=== PATIENT | female | born 1960 | race Caucasian/White ===

== ENCOUNTER 2016-12-03 08:28 | Emergency (ER) ==
[2016-12-03 08:35] VITALS: BP 120/77; TEMP 97.7; BMI 25.9
--- NOTE | 2016-12-03 09:13 | DI ---
EXAM: Radiographs, pelvis HISTORY: Pelvic pain. COMPARISON: 04/23/2016. TECHNIQUE: Single frontal view. FINDINGS: Bone mineralization is normal. There is no fracture or dislocation. The joint spaces ar e maintained. No focal soft tissue abnormality is seen. Since the prior study, there has been no s ignificant interval change. IMPRESSION: No fracture or dislocation.
--- NOTE | 2016-12-03 09:19 | DI ---
EXAM: Radiographs, right hip HISTORY: Right hip pain. COMPARISON: 04/23/2016. TECHNIQUE: Two views. FINDINGS: Plate and screw fixation seen in the mid femoral diaphysis across a partially healed medeiros sverse fracture which demonstrates some bridging callus formation. No acute fracture or dislocation identified. The soft tissues are unremarkable. IMPRESSION: 1. No acute abnormality of the right hip. 2. Partially healed mid diaphyseal fracture of the mid femoral diaphysis status post internal fixat ion.
--- NOTE | 2016-12-03 09:22 | DI ---
Exam: Two views right femur. Clinical indication: Pain. Findings: There is a large plate and screws fixating a transverse fracture within the distal one third of the right femur. There is some callus formation across the fracture site, but there is still persistent lucency. There is no radiographic evidence of hardware complication. There is a significant bowing within the right femur which is unchanged from bilateral knee radiogra phs dated 08/10/2015. There is a mild right knee degenerative osteoarthritic changes. Overall the right femur appears shortened at and may be related to underlying congenital abnormality. Impression: 1. Plate and screws fixating the distal right femur fracture with partial healing and no radiograph ic evidence of hardware complication. 2. Chronic bowing of the right femur. 3. Right knee degenerative osteoarthritic changes.
--- NOTE | 2016-12-03 09:33 | ED.PDOC ---
General ED Provider: Dr. ROBERTO LR Chief Complaint: Extremity Pain/Injury Stated Complaint: chronic right femur, hip pain Time Seen by Physician: 08:33 (this pain is chronic no new injury) Mode of Arrival: Walk-In Information Source: Patient Exam Limitations: No limitations Primary Care Provider: ANNIE OSBORN Nursing and Triage Documentation Reviewed and Agree: Yes (seen with lobo young) Review of Systems - Review Of Systems Constitutional: Reports: No symptoms Eyes: Reports: No symptoms Ears, Nose, Mouth, Throat: Reports: No symptoms Respiratory: Reports: No symptoms Cardiac: Reports: No symptoms GI: Reports: No symptoms : Reports: No symptoms Musculoskeletal: Reports: Joint pain (hip right, femur) Skin: Reports: No symptoms Neurological: Reports: No symptoms Endocrine: Reports: No symptoms Hematologic/Lymphatic: Reports: No symptoms All Other Systems: Reviewed and Negative Past Medical History - Past Medical History Endocrine: Reports: None Cardiovascular: Reports: None Respiratory: Reports: None Hematological: Reports: None Gastrointestinal: Reports: None Genitourinary: Reports: None Neuro/Psych: Reports: Migraine, Anxiety, Depression Musculoskeletal: Reports: None Cancer: Reports: Other (melanoma) Last Menstrual Period: hysterectomy Other Pertinent Past Medical History: 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 - Surgical History General Surgical History: Reports: Orthopedic (right knee with steel plate for 2 years ), Other (melanoma upper lip) - Family History Family History: Reports: Unknown - Social History Smoking Status: Current every day smoker, Light tobacco smoker Hx Substance Use: No Alcohol Screening: None Physical Exam - Physical Exam Appearance: Well-appearing, No pain distress, Well-nourished Eyes: OFELIA, EOMI, Conjunctiva clear ENT: Ears normal, Nose normal, Oropharynx normal Respiratory: Airway patent, Breath sounds clear, Breath sounds equal, Respirations nonlabored Cardiovascular: RRR, Pulses normal, No rub, No murmur GI/: Soft, Nontender, No masses, Bowel sounds normal, No Organomegaly Musculoskeletal: Normal strength, ROM intact, No edema, No calf tenderness Skin: Warm, Dry, Normal color Neurological: Sensation intact, Motor intact, Reflexes intact, Cranial nerves intact, Alert, Oriented Psychiatric: Affect appropriate, Mood appropriate Interpretation - Radiology Interpretation Radiology Interpretation By: Radiologist Radiology Results: No acute changes Critical Care Note - Critical Care Note Total Time (mins): 0 Course - Course Orders, Labs, Meds: Orders Category Date Time Status FEMUR, RIGHT 2 VIEWS Stat RADS 12/03/16 08:42 Completed HIP, RIGHT 2 VIEWS Stat RADS 12/03/16 08:42 Completed PELVIS 1 OR 2 VIEWS Stat RADS 12/03/16 08:42 Completed Vital Signs: Temp Pulse Resp BP Pulse Ox 12/03/16 08:29 97.7 F 66 20 120/77 96 Departure - Departure Time of Disposition: 09:32 Disposition: HOME SELF-CARE Discharge Problem: Chronic pain of right hip Instructions: Arthralgia (ED), Hip Pain (ED) Condition: Good Pt referred to PMD for follow-up: No Additional Instructions: Please call your Family Physician as soon as possible to schedule a follow-up appointment. Allergies/Adverse Reactions: Allergies dicyclomine HCl [From Bentyl] Adverse Reaction (Verified 12/03/16 08:37) venom-wasp [Wasp Venom] Adverse Reaction (Verified 12/03/16 08:37) Home Medications: Ambulatory Orders Diazepam 10 mg PO TID 08/28/14 Fluoxetine HCl [Prozac] 60 mg PO DAILY 08/28/14 Methocarbamol 500 mg PO TID 08/28/14 Quetiapine Fumarate [Seroquel] 300 mg PO BEDTIME 08/28/14 Hydrocodone Bit/Acetaminophen [[place] 7.5-325] 1 each PO QID 07/04/16 Disposition Discussed With: Patient
== END 2016-12-03 09:40 | disposition home or self-care (01) ==
LOC: ED 08:28
DX: M25.551 Pain in right hip (principal); G89.29 Other chronic pain; F17.210 Nicotine dependence, cigarettes, uncomplicated; Z79.899 Other long term (current) drug therapy
CPT/HCPCS: 99282

== ENCOUNTER 2017-11-26 10:50 | Outpatient (CLI) ==
--- NOTE | 2017-11-27 09:33 | MAMMO ---
EXAM: Digital screening mammogram with 3-D tomosynthesis and CAD HISTORY: Screening mammogram COMPARISON: Mammogram 03/01/2016 and 04/08/2014 FINDINGS: Bilateral CC and MLO views of the breasts were performed digitally and demonstrate heterog eneous breast density. This significantly limits this evaluation for subtle masses or calcifications. There is no abnormal nodule or calcification. There is no significant interval change. IMPRESSION: No suspicious nodule or calcification RECOMMENDATION: Annual screening mammogram BIRADS category 1: Normal
== END 2017-11-26 10:51 | disposition home or self-care (01) ==
LOC: RAD 10:50
PROVIDERS: ATTEND Physician Assistant Medical
DX: Z12.31 Encounter for screening mammogram for malignant neoplasm of breast (principal)
CPT/HCPCS: 77067

== ENCOUNTER 2018-06-14 11:40 | Emergency (ER) | payer OTHER ==
[2018-06-14 11:48] VITALS: BP 143/86; TEMP 98.6; BMI 22.4
--- NOTE | 2018-06-14 12:21 | ED.PDOC ---
General ED Provider: Dr. ANTONIO HERNANDEZ Chief Complaint: Wrist Pain/Injury Stated Complaint: Rt wrist and hand pain. Was walking dog who pulled forcefully on leash causing her to fall on rt hand and wrist/leash wrapped around wrist and 5th finger Time Seen by Physician: 12:15 Mode of Arrival: Walk-In Information Source: Patient Exam Limitations: No limitations Primary Care Provider: ANNIE OSBORN Nursing and Triage Documentation Reviewed and Agree: Yes Does patient meet sepsis criteria?: No System Inflammatory Response Syndrome: Not Applicable Sepsis Protocol: For patient's 13 years and over: Temp is 96.8 and below OR 101 and greater Pulse >90 BPM Resp >20/minute Acutely Altered Mental Status Are patient's symptoms suggestive of a new infection, such as: -Pneumonia -Skin, Soft Tissue -Endocarditis -UTI -Bone, Joint Infection -Implantable Device -Acute Abdominal Infection -Wound Infection -Meningitis -Blood Stream Catheter Infection -Unknown Musculoskeletal Complaint Exam - Hand/Wrist Complaint/Exam Location of Pain: Reports: Right Mechanism of Injury: Reports: Trauma Symptoms Are: Still present Onset of Pain: Reports: Immediate, Post accident Initial Severity: Moderate Current Severity: Mild Location: Reports: Discrete (over ulnar carpal region and 5th metacarpal; no ecchymoses) Character: Reports: Aching Alleviating: Reports: Rest, Cold Aggravating: Reports: Movement Associated Signs and Symptoms: Reports: Swelling. Denies: Redness, Bruising, Fever, Weakness, Numbness, Tingling Related History: Denies: Similar episode, Occupational injury Dominant Hand: Right Related Surgical History: Reports: None Hand/Wrist Findings: Present: Swelling Tenderness: Present: Ulna, Metacarpal Compartment Syndrome Risk Factors: Absent: Pain, Paralysis, Pallor, Pulselessness, Paresthesias Review of Systems - Review Of Systems Constitutional: Reports: No symptoms Eyes: Reports: No symptoms Ears, Nose, Mouth, Throat: Reports: No symptoms Respiratory: Reports: No symptoms Cardiac: Reports: No symptoms GI: Reports: No symptoms : Reports: No symptoms Musculoskeletal: Reports: No symptoms, Joint pain, Muscle pain Skin: Reports: No symptoms Neurological: Reports: No symptoms Endocrine: Reports: No symptoms Hematologic/Lymphatic: Reports: No symptoms All Other Systems: Reviewed and Negative Past Medical History - Past Medical History Endocrine: Reports: None Cardiovascular: Reports: None Respiratory: Reports: None Hematological: Reports: None Gastrointestinal: Reports: None Genitourinary: Reports: None Neuro/Psych: Reports: Migraine, Anxiety, Depression Musculoskeletal: Reports: None Cancer: Reports: Other (melanoma) Last Menstrual Period: NA Other Pertinent Past Medical History: 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 - Surgical History General Surgical History: Reports: Orthopedic (right knee with steel plate for 2 years ), Other (melanoma upper lip) - Family History Family History: Reports: Unknown - Social History Smoking Status: Current some day smoker Hx Substance Use: No Alcohol Screening: None - Immunizations Tetanus Shot up to Date: Yes Physical Exam - Physical Exam Appearance: Well-appearing, No pain distress, Well-nourished Eyes: OFELIA, EOMI, Conjunctiva clear ENT: Ears normal, Nose normal, Oropharynx normal Respiratory: Airway patent, Breath sounds clear, Breath sounds equal, Respirations nonlabored Cardiovascular: RRR, Pulses normal, No rub, No murmur GI/: Soft, Nontender, No masses, Bowel sounds normal, No Organomegaly Musculoskeletal: Normal strength, ROM intact, No edema, No calf tenderness Skin: Warm, Dry, Normal color Neurological: Sensation intact, Motor intact, Reflexes intact, Cranial nerves intact, Alert, Oriented Psychiatric: Affect appropriate, Mood appropriate Interpretation - Radiology Interpretation Radiology Interpretation By: Radiologist (Wrist and hand xrays) Radiology Results: Negative (Wrist and hand xrays at 1254 hrs) Re-Evaluation - Re-Evaluation Time of Re-Evaluation: 12:55 Status: Improved Vital Signs Stable: Yes Appearance: NAD Critical Care Note - Critical Care Note Total Time (mins): 0 Course - Course Orders, Labs, Meds: Orders Category Date Time Status HAND, RIGHT 3 VIEWS Stat RADS 06/14/18 12:19 Completed WRIST, RIGHT 3 VIEWS Stat RADS 06/14/18 12:19 Completed Vital Signs: Temp Pulse Resp BP Pulse Ox 06/14/18 11:40 98.6 F 64 16 143/86 H 96 Departure - Departure Time of Disposition: 12:58 Disposition: HOME SELF-CARE Discharge Problem: Contusion of hand, right, Strain of wrist, right Instructions: Knee Pain (ED), Wrist Sprain (ED), Hematoma (ED) Condition: Good Pt referred to PMD for follow-up: Yes (next week) IPMP verified?: No Additional Instructions: Wear splint for support Apply ice/ keep elevated and take Ibuprofen 200 mg every 6 hours as needed for pain Take home meds as well. Allergies/Adverse Reactions: Allergies dicyclomine HCl [From Bentyl] Adverse Reaction (Verified 06/14/18 11:50) venom-wasp [Wasp Venom] Adverse Reaction (Verified 06/14/18 11:50) Home Medications: Ambulatory Orders Diazepam 10 mg PO TID 08/28/14 Fluoxetine HCl [Prozac] 60 mg PO DAILY 08/28/14 Methocarbamol 500 mg PO TID 08/28/14 Quetiapine Fumarate [Seroquel] 300 mg PO BEDTIME 08/28/14 Hydrocodone Bit/Acetaminophen [[place] 7.5-325] 1 each PO QID 07/04/16 Disposition Discussed With: Patient
--- NOTE | 2018-06-14 12:45 | DI ---
EXAM: Three views of the right hand. History: Right hand pain and trauma. Findings: Osteopenia. No acute fracture. Severe narrowing of the second MCP joint with subluxation . Moderate narrowing of the second DIP joint. Mild to moderate polyarticular joint space narrowing s een elsewhere. Impression: No acute fracture
--- NOTE | 2018-06-14 12:47 | DI ---
EXAM: Three views of the right wrist. History: Right wrist trauma. Findings: Osteopenia. No acute fracture or dislocation. Mild to moderate polyarticular joint space narrowing. Impression: No acute osseous abnormality
== END 2018-06-14 13:09 | disposition home or self-care (01) ==
LOC: ED 11:40
DX: S60.221A Contusion of right hand, initial encounter (principal); S66.911A Strain of unspecified muscle, fascia and tendon at wrist and hand level, right hand, initial encounter; W19.XXXA Unspecified fall, initial encounter; F17.210 Nicotine dependence, cigarettes, uncomplicated
CPT/HCPCS: 99283

== ENCOUNTER 2018-08-08 16:51 | Emergency (ER) ==
[2018-08-08 16:54] VITALS: BP 131/72; TEMP 98.9; BMI 22.2
--- NOTE | 2018-08-08 17:35 | ED.PDOC ---
General ED Provider: Dr. ROBERTO LR Chief Complaint: Headache Stated Complaint: headache Time Seen by Physician: 17:00 (seen with ewelina at all times ) Mode of Arrival: Walk-In Information Source: Patient Exam Limitations: No limitations Primary Care Provider: ANNIE OSBORN Nursing and Triage Documentation Reviewed and Agree: Yes Does patient meet sepsis criteria?: No System Inflammatory Response Syndrome: Not Applicable Sepsis Protocol: For patient's 13 years and over: Temp is 96.8 and below OR 101 and greater Pulse >90 BPM Resp >20/minute Acutely Altered Mental Status Are patient's symptoms suggestive of a new infection, such as: -Pneumonia -Skin, Soft Tissue -Endocarditis -UTI -Bone, Joint Infection -Implantable Device -Acute Abdominal Infection -Wound Infection -Meningitis -Blood Stream Catheter Infection -Unknown Neurological Complaint Exam - Headache Complaint/Exam Onset: Gradual Duration: 2 days Symptoms Are: Still present Timing: Constant Episodes Lasting: Hours Worst Headache Ever: No Initial Severity: Moderate Current Severity: Moderate Location: Frontal, Temporal Character: Reports: Throbbing Aggravating: Reports: None Alleviating: Reports: None Associated Signs and Symptoms: Denies: Dizziness, Seizure, Nausea, Vomiting, Sinus pressure, Fever, Neck pain, Neck stiffness, Decreased LOC, Visual changes Related History: Reports: Similar episode Related Surgical History: Reports: None SAH Risk Factors: Reports: None Meningitis Risk Factors: Reports: None SDH Risk Factors: Reports: None Normal Head CT Within Last 12 Months: No Fundoscopic Exam: Present: Normal Findings Papilledema Present: No Temporal Artery Tenderness: Present: None Sinus Tenderness: Present: None TMJ Tenderness: Present: None Glascow Coma Scale (see protocol): 15 Meningeal Signs Positive: No ROM Limited In: No Limitiations Focal Weakness: Present: None Focal Sensory Loss: Present: None Gait: Normal Nystagmus Present: No Gag Reflex Present: Yes Differential Diagnoses: Migraine Review of Systems - Review Of Systems Constitutional: Reports: No symptoms Eyes: Reports: No symptoms Ears, Nose, Mouth, Throat: Reports: No symptoms Respiratory: Reports: No symptoms Cardiac: Reports: No symptoms GI: Reports: No symptoms : Reports: No symptoms Musculoskeletal: Reports: No symptoms Skin: Reports: No symptoms Neurological: Reports: Headache Endocrine: Reports: No symptoms Hematologic/Lymphatic: Reports: No symptoms All Other Systems: Reviewed and Negative Past Medical History - Past Medical History Previously Healthy: Yes Endocrine: Reports: None Cardiovascular: Reports: None Respiratory: Reports: None Hematological: Reports: None Gastrointestinal: Reports: None Genitourinary: Reports: None Neuro/Psych: Reports: Migraine, Anxiety, Depression Musculoskeletal: Reports: None Cancer: Reports: Other (melanoma) Last Menstrual Period: HYSTERECTOMY Other Pertinent Past Medical History: 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 - Surgical History General Surgical History: Reports: Orthopedic (right knee with steel plate for 2 years ), Other (melanoma upper lip) - Family History Family History: Reports: Unknown - Social History Smoking Status: Current some day smoker Hx Substance Use: No Alcohol Screening: None - Immunizations Tetanus Shot up to Date: Yes Physical Exam - Physical Exam Appearance: Well-appearing, No pain distress, Well-nourished Eyes: OFELIA, EOMI, Conjunctiva clear ENT: Ears normal, Nose normal, Oropharynx normal Respiratory: Airway patent, Breath sounds clear, Breath sounds equal, Respirations nonlabored Cardiovascular: RRR, Pulses normal, No rub, No murmur GI/: Soft, Nontender, No masses, Bowel sounds normal, No Organomegaly Musculoskeletal: Normal strength, ROM intact, No edema, No calf tenderness Skin: Warm, Dry, Normal color Neurological: Sensation intact, Motor intact, Reflexes intact, Cranial nerves intact, Alert, Oriented Psychiatric: Affect appropriate, Mood appropriate Critical Care Note - Critical Care Note Total Time (mins): 0 Course - Course Vital Signs: Temp Pulse Resp BP Pulse Ox 08/08/18 16:52 98.9 F 67 16 131/72 98 Departure - Departure Time of Disposition: 17:34 Disposition: HOME SELF-CARE Discharge Problem: Headache Instructions: Acute Headache (ED) Condition: Good Pt referred to PMD for follow-up: Yes IPMP verified?: No Additional Instructions: Please call your Family Physician as soon as possible to schedule a follow-up appointment. Prescriptions: Hydrocodone/Acetaminophen [[place] 10-325 Tablet] 1 each PO Q8HR #7 tablet Allergies/Adverse Reactions: Allergies dicyclomine HCl [From Bentyl] Adverse Reaction (Verified 08/08/18 16:54) venom-wasp [Wasp Venom] Adverse Reaction (Verified 08/08/18 16:54) Home Medications: Ambulatory Orders Diazepam 10 mg PO TID 08/28/14 Fluoxetine HCl [Prozac] 60 mg PO DAILY 08/28/14 Methocarbamol 500 mg PO TID 08/28/14 Hydrocodone Bit/Acetaminophen [[place] 7.5-325] 1 each PO QID 07/04/16 Diazepam [Valium] 5 mg PO TID PRN 08/08/18 Hydrocodone/Acetaminophen [[place] 10-325 Tablet] 1 each PO Q8HR #7 tablet
== END 2018-08-08 17:42 | disposition home or self-care (01) ==
LOC: ED 16:51
DX: R51 Headache (principal); F17.210 Nicotine dependence, cigarettes, uncomplicated
CPT/HCPCS: 99282

== ENCOUNTER 2018-08-19 17:22 | Emergency (ER) ==
[2018-08-19 17:30] VITALS: TEMP 99.2; BMI 22.5
[2018-08-19] MEDS ORDERED: IMITREX SUBCUT STA (19:20)
[2018-08-19] MEDS ORDERED: ZOFRAN 4 MG/2 ML IM STA (19:20)
[2018-08-19] MEDS ORDERED: TORADOL IM STA (19:20)
--- NOTE | 2018-08-19 19:23 | ED.PDOC ---
General ED Provider: Dr. MISAEL DICKSON Chief Complaint: Headache Stated Complaint: Started having headaches today took the last of imitrex. Oxycodone for arthritis pain has not helped. Time Seen by Physician: 19:21 Mode of Arrival: Walk-In Information Source: Patient Primary Care Provider: ANNIE OSBORN Nursing and Triage Documentation Reviewed and Agree: Yes Does patient meet sepsis criteria?: No System Inflammatory Response Syndrome: Not Applicable Sepsis Protocol: For patient's 13 years and over: Temp is 96.8 and below OR 101 and greater Pulse >90 BPM Resp >20/minute Acutely Altered Mental Status Are patient's symptoms suggestive of a new infection, such as: -Pneumonia -Skin, Soft Tissue -Endocarditis -UTI -Bone, Joint Infection -Implantable Device -Acute Abdominal Infection -Wound Infection -Meningitis -Blood Stream Catheter Infection -Unknown Neurological Complaint Exam - Headache Complaint/Exam Onset: Gradual Duration: 2 days worse today Symptoms Are: Still present Timing: Constant Worst Headache Ever: No Initial Severity: Moderate Current Severity: Severe Location: Diffuse, Right, Left, Frontal, Temporal, Parietal, Occipital Character: Reports: Throbbing, Typical headache, Migraine Aggravating: Reports: Bright lights Alleviating: Reports: None Associated Signs and Symptoms: Reports: Nausea, Vomiting, Neck pain. Denies: Dizziness, Seizure, Sinus pressure, Fever, Neck stiffness, Decreased LOC, Visual changes Related History: Reports: Similar episode Related Surgical History: Reports: None SAH Risk Factors: Reports: None Meningitis Risk Factors: Reports: None SDH Risk Factors: Reports: None Temporal Arteritis Risk Factors: Reports: None Normal Head CT Within Last 12 Months: No Fundoscopic Exam: Present: Normal Findings Papilledema Present: No Temporal Artery Tenderness: Present: None Sinus Tenderness: Present: None TMJ Tenderness: Present: None Glascow Coma Scale (see protocol): 15 Meningeal Signs Positive: No Pain on Passive Flexion-Positive Kernig's: No ROM Limited In: No Limitiations Focal Weakness: Present: None Focal Sensory Loss: Present: None Gait: Abnormal (due to chronic arthritis ) Nystagmus Present: No Gag Reflex Present: No [id number]: Normal Findings Romberg Test Positive: No Babinski Sign: Negative Right, Negative Left Heel to Toe Normal: No Differential Diagnoses: Tension Headache Review of Systems - Review Of Systems Constitutional: Reports: Weakness, Loss of appetite Eyes: Reports: Photophobia, Glasses Ears, Nose, Mouth, Throat: Reports: No symptoms Respiratory: Reports: No symptoms Cardiac: Reports: No symptoms GI: Reports: Nausea, Poor appetite, Vomiting (x2) Musculoskeletal: Reports: Back pain, Joint pain, Muscle pain Neurological: Reports: Anxiety Endocrine: Reports: No symptoms Hematologic/Lymphatic: Reports: No symptoms All Other Systems: Reviewed and Negative Past Medical History - Past Medical History Previously Healthy: Yes Endocrine: Reports: None Cardiovascular: Reports: None Respiratory: Reports: None Hematological: Reports: None Gastrointestinal: Reports: None Genitourinary: Reports: None Neuro/Psych: Reports: Migraine, Anxiety, Depression Musculoskeletal: Reports: None Cancer: Reports: Other (melanoma) Last Menstrual Period: hysterectomy Other Pertinent Past Medical History: 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 - Surgical History General Surgical History: Reports: Orthopedic (right knee with steel plate for 2 years ), Other (melanoma upper lip) - Family History Family History: Reports: Unknown - Social History Smoking Status: Current some day smoker Hx Substance Use: No Alcohol Screening: None Physical Exam - Physical Exam Appearance: Ill-appearing Ill-appearing: Mild Pain Distress: Severe Eyes: OFELIA, EOMI, Conjunctiva clear ENT: Ears normal, Nose normal, Oropharynx normal Neck: Supple Respiratory: Airway patent, Breath sounds clear, Breath sounds equal, Respirations nonlabored Cardiovascular: Bradycardia GI/: Soft, Nontender, No masses, Bowel sounds normal, No Organomegaly Skin: Warm, Dry Neurological: Alert, Oriented Psychiatric: Anxious Interpretation - Radiology Interpretation Radiology Interpretation By: Radiologist Radiology Results: Negative Exam Interpreted: CT Scan (head ) Re-Evaluation - Re-Evaluation Time of Re-Evaluation: 20:56 Status: Unchanged, Improved Pain Level: gone Critical Care Note - Critical Care Note Total Time (mins): 0 Course - Course Orders, Labs, Meds: Orders Category Date Time Status Ketorolac Tromethamine [Toradol] MEDS 08/19/18 19:20 Discontinued 60 mg IM ONCE STA Ondansetron HCl/Pf [Zofran 4 mg/2 ml] MEDS 08/19/18 19:20 Discontinued 4 mg IM ONCE STA Sumatriptan Succinate [Imitrex] MEDS 08/19/18 19:20 Discontinued [address] STA CT HEAD W/O CONTRAST Stat RADS 08/19/18 19:20 Completed Medications Discontinued Medications Generic Name Dose Route Start Last Admin Trade Name Freq PRN Reason Stop Dose Admin Ketorolac Tromethamine 60 mg 08/19/18 19:20 08/19/18 19:47 Toradol IM 08/19/18 19:21 60 mg ONCE STA Administration Ondansetron HCl 4 mg 08/19/18 19:20 08/19/18 19:47 Zofran 4 Mg/2 Ml IM 08/19/18 19:21 4 mg ONCE STA Administration Sumatriptan Succinate 6 mg 08/19/18 19:20 08/19/18 19:41 Imitrex SUBCUT 08/19/18 19:21 6 mg ONCE STA Administration Vital Signs: Temp Pulse Resp BP Pulse Ox 08/19/18 17:23 99.2 F 47 L 16 118/74 96 Departure - Departure Time of Disposition: 20:56 Disposition: HOME SELF-CARE Discharge Problem: Chronic migraine Instructions: Migraine Headache (ED) Condition: Stable Pt referred to PMD for follow-up: Yes IPMP verified?: No Additional Instructions: Continue home imitrex as needed for migraines Follow up with your neurologist soon. Prescriptions: Sumatriptan Succinate 100 mg PO Q2H PRN #10 tablet PRN Reason: Migraine headache Allergies/Adverse Reactions: Allergies dicyclomine HCl [From Bentyl] Adverse Reaction (Verified 08/19/18 17:32) venom-wasp [Wasp Venom] Adverse Reaction (Verified 08/19/18 17:32) Home Medications: Ambulatory Orders Fluoxetine HCl [Prozac] 80 mg PO DAILY 08/28/14 Methocarbamol 500 mg PO TID 08/28/14 Diazepam [Valium] 5 mg PO TID PRN 08/08/18 Butalb/Acetaminophen/Caffeine [Ebfnqy-[id number]-Jkom 50-300-40] 1 each PO DIRECTED 08/19/18 Sumatriptan Succinate 100 mg PO Q2H PRN #10 tablet 08/19/18 Sumatriptan Succinate [Imitrex] 50 mg PO DIRECTED 08/19/18 Disposition Discussed With: Patient, Family
--- NOTE | 2018-08-19 19:55 | CT ---
EXAM: CT head without contrast 08/19/2018. Sagittal and coronal reformatted images obtained HISTORY: Headache COMPARISON: 04/24/2018 FINDINGS: There is no evidence of intracranial hemorrhage. The midline is maintained. There is no h ydrocephalus. Chronic small vessel ischemic changes. Mild atrophy. No cerebellar tonsillar ectopia . Evaluation of the calvarium shows no fracture. The mastoid air cells are normally pneumatized. IMPRESSION: No acute intracranial abnormality.
[2018-08-19 21:07] VITALS: BP 141/81
== END 2018-08-19 21:07 | disposition home or self-care (01) ==
LOC: ED 17:22
DX: G43.909 Migraine, unspecified, not intractable, without status migrainosus (principal); F17.210 Nicotine dependence, cigarettes, uncomplicated
CPT/HCPCS: 96372; 99283